=== PATIENT | male | born 1960 | race Two or more races ===

== ENCOUNTER 2021-12-02 21:22 | Inpatient (IN) | payer MEDICAID ==
[~2021-12-02] VITALS: Ht 165.1 cm; Wt 73.2 kg
[2021-12-02 22:23] LABS: BASOPHILS % 0.3 % (0.0-2.0); EOSINOPHILS % 1.9 % (0.0-5.0); HEMOGLOBIN. 13.8 g/dL (14.0-18.0); LYMPHOCYTES % 40.1 % (20.0-50.0); MEAN CORPUSCULAR HEMOGLOBIN 29.4 pg (28.0-32.0); MEAN CORPUSCULAR VOLUME 85.3 fL (80.0-94.0); MEAN PLATELET VOLUME 9.3 fl (7.4-10.4); MONOCYTES % 7.6 % (2.0-8.0); NEUTROPHILS % 50.1 % (40.0-76.0); PLATELET 214 x1000/uL (130-400); RED BLOOD CELL COUNT 4.69 mill/uL (4.7-6.1); RED CELL DISTRIBUTION WIDTH 13.4 % (11.6-14.6)
[2021-12-02 22:29] LABS: PROTHROMBIN TIME 10.3 sec (9.6-11.0)
[2021-12-02 22:42] LABS: CHLORIDE 103 mEq/L (98-107); ETHANOL BLOOD < 10 mg/dL
[2021-12-02] MEDS ORDERED: IOHEXOL-350 100 ML BOTTLE ONE (22:49)
[2021-12-02 22:57] LABS: CLARITY URINE CLEAR (CLEAR); COLOR URINE YELLOW (YELLOW); KETONES URINE NEGATIVE (NEGATIVE); LEUKOCYTE ESTERASE URINE NEGATIVE (NEGATIVE); NITRITE URINE NEGATIVE (NEGATIVE); OCCULT BLOOD URINE TRACE (NEGATIVE); PH URINE 6.5 (4.5-8.0); PROTEIN URINE 2+ (NEGATIVE); SPECIFIC GRAVITY URINE 1.021 (1.005-1.030); UROBILINOGEN URINE 0.2 E.U./dL (0.2-1.0)
[2021-12-02 23:08] LABS: *AMPHETAMINES SCREEN URINE NEGATIVE (NEGATIVE); *BARBITURATES SCREEN URINE NEGATIVE (NEGATIVE); *BENZODIAZEPINES SCREEN URINE NEGATIVE (NEGATIVE); *COCAINE SCREEN URINE NEGATIVE (NEGATIVE); CANNABINOID URINE SCREEN NEGATIVE (NEGATIVE); METHADONE URINE SCREEN NEGATIVE (NEGATIVE); OPIATES URINE SCREEN NEGATIVE (NEGATIVE); PHENCYCLIDINE URINE SCREEN NEGATIVE (NEGATIVE)
[2021-12-03] MEDS ORDERED: ASPIRIN 81MG TABLET PO NR (04:30)
[2021-12-03] MEDS ORDERED: DOCUSATE SODIUM 100MG CAPSULE PO PRN (05:15)
[2021-12-03] MEDS ORDERED: GUAIFENESIN 200MG/10ML SUGAR FREE UDC PO PRN (05:15)
[2021-12-03] MEDS ORDERED: DEXTROSE 50% WATER 50ML SYRINGE IV PRN (05:15)
[2021-12-03] MEDS ORDERED: HYDROCODONE/ACETAMINOPHEN 5/325MG TABLET PO PRN (05:15)
[2021-12-03] MEDS ORDERED: MAGNESIUM/ALUMINUM HYDROXIDE/SIMETHICONE 30ML UDC PO PRN (05:15)
[2021-12-03] MEDS ORDERED: NA PHOS,M-B/NA PHOS,DI-BA ENEMA 118ML PR PRN (05:15)
[2021-12-03] MEDS ORDERED: ONDANSETRON HCL 4MG/2ML INJ IV PRN (05:15)
[2021-12-03] MEDS ORDERED: NALOXONE HCL 0.4MG/ML VIAL IV PRN (05:45)
[2021-12-03] MEDS: BLOOD SUGAR DIAGNOSTIC STRIP TEST SCH ×4 (06:40→21:40)
[2021-12-03] MEDS: HYDRALAZINE 20MG/ML VIAL IV PRN ×2 (06:43→09:49)
[2021-12-03] MEDS: PANTOPRAZOLE 40MG DR TABLET PO SCH (07:50)
[2021-12-03] MEDS: INSULIN LISPRO 100 UNITS/ML SUBCUT SCH ×4 (07:51→21:40)
[2021-12-03 08:25] LABS: BASOPHILS % 0.5 % (0.0-2.0); EOSINOPHILS % 1.3 % (0.0-5.0); HEMATOCRIT. 43.2 % (42.0-52.0); LYMPHOCYTES % 24.6 % (20.0-50.0); MEAN CORPUSCULAR HEMOGLOBIN 29.3 pg (28.0-32.0); MEAN CORPUSCULAR VOLUME 84.5 fL (80.0-94.0); MEAN PLATELET VOLUME 8.9 fl (7.4-10.4); MONOCYTES % 6.4 % (2.0-8.0); NEUTROPHILS % 67.2 % (40.0-76.0); PLATELET 250 x1000/uL (130-400); RED BLOOD CELL COUNT 5.12 mill/uL (4.7-6.1); RED CELL DISTRIBUTION WIDTH 13.4 % (11.6-14.6)
[2021-12-03 09:46] VITALS: BP 179/75
[2021-12-03 10:00] VITALS: BP 179/75
[2021-12-03 11:18] LABS: HDL CHOLESTEROL 40 mg/dL (40-59); LDL CHOLESTEROL 148 mg/dL (5-100)
[2021-12-03 12:00] VITALS: BP 169/82
[2021-12-03] MEDS ORDERED: IOHEXOL-350 100 ML BOTTLE ONE (12:06)
[2021-12-03 12:24] LABS: CHLORIDE 104 mEq/L (98-107); T4 FREE 1.35 ng/dL (0.76-1.46)
[2021-12-03] MEDS ORDERED: GLUXL10 PO (13:13)
[2021-12-03] MEDS ORDERED: IBUP-2029 MT (13:13)
[2021-12-03] MEDS ORDERED: METF500S9 PO (13:13)
[2021-12-03] MEDS: LORAZEPAM 2MG/ML CPJ IV PRN (15:09)
[2021-12-03 15:11] LABS: CREATINE KINASE 114 IU/L (39-308)
[2021-12-03 16:00] VITALS: BP 163/81
[2021-12-03] MEDS ORDERED: LORAZEPAM 2MG/ML CPJ IV NR (17:00)
[2021-12-03 20:00] VITALS: BP 159/78
[2021-12-03 20:16] LABS: PROTHROMBIN TIME 10.8 sec (9.6-11.0)
[2021-12-03 20:21] LABS: CREATINE KINASE 167 IU/L (39-308)
[2021-12-03 20:34] LABS: PARTIAL THROMBOPLASTIN TIME 24.5 sec (23.4-31.0)
[2021-12-03] MEDS: ATORVASTATIN CALCIUM 40MG TABLET PO SCH (21:00)
[2021-12-04] VITALS: BP 164/89
[2021-12-04 04:00] VITALS: BP 136/77
[2021-12-04] MEDS: BLOOD SUGAR DIAGNOSTIC STRIP TEST SCH ×4 (05:57→20:24)
[2021-12-04] MEDS: INSULIN LISPRO 100 UNITS/ML SUBCUT SCH ×5 (05:57→20:23)
[2021-12-04 08:00] VITALS: BP 125/89
[2021-12-04] MEDS: ASPIRIN 81MG TABLET PO SCH (09:18)
[2021-12-04] MEDS: PANTOPRAZOLE 40MG DR TABLET PO SCH (09:18)
[2021-12-04 12:00] VITALS: BP 141/82
[2021-12-04 12:49] LABS: BASOPHILS % 0.2 % (0.0-2.0); HEMATOCRIT. 42.8 % (42.0-52.0); HEMOGLOBIN. 14.6 g/dL (14.0-18.0); LYMPHOCYTES % 10.1 % (20.0-50.0); MEAN CORPUSCULAR VOLUME 85.3 fL (80.0-94.0); MEAN PLATELET VOLUME 9.8 fl (7.4-10.4); MONOCYTES % 7.9 % (2.0-8.0); NEUTROPHILS % 81.8 % (40.0-76.0); PLATELET 244 x1000/uL (130-400); RED BLOOD CELL COUNT 5.02 mill/uL (4.7-6.1); RED CELL DISTRIBUTION WIDTH 13.2 % (11.6-14.6)
[2021-12-04 13:05] LABS: CHLORIDE 102 mEq/L (98-107)
[2021-12-04] MEDS: LORAZEPAM 2MG/ML CPJ IV PRN (13:52)
[2021-12-04 16:00] VITALS: BP 162/85
[2021-12-04] MEDS: DEXT 5%/0.9% NACL 1,000 ML IV SCH (17:52)
[2021-12-04] MEDS: HYDRALAZINE 20MG/ML VIAL IV PRN (18:56)
[2021-12-04] MEDS: DIPHENHYDRAMINE 50MG/ML VIAL IV PRN (19:31)
[2021-12-04] MEDS: ATORVASTATIN CALCIUM 40MG TABLET PO SCH ×3 (19:58→20:57)
[2021-12-04 20:00] VITALS: BP 118/72
[2021-12-04] MEDS: HALOPERIDOL LACTATE 5MG/ML VIAL IM PRN (20:16)
[2021-12-04] MEDS: CLOPIDOGREL 75MG TABLET PO SCH (21:46)
[2021-12-05] VITALS: BP 157/87
[2021-12-05] MEDS: LORAZEPAM 2MG/ML CPJ IV PRN (02:29)
[2021-12-05] MEDS: HALOPERIDOL LACTATE 5MG/ML VIAL IM PRN ×2 (02:29→12:45)
[2021-12-05 04:00] VITALS: BP 138/84
[2021-12-05] MEDS: DEXT 5%/0.9% NACL 1,000 ML IV SCH ×2 (05:45→17:10)
[2021-12-05] MEDS: DIPHENHYDRAMINE 50MG/ML VIAL IV PRN (05:45)
[2021-12-05] MEDS: INSULIN LISPRO 100 UNITS/ML SUBCUT SCH ×4 (06:21→20:41)
[2021-12-05] MEDS: BLOOD SUGAR DIAGNOSTIC STRIP TEST SCH ×4 (06:21→20:27)
[2021-12-05 08:00] VITALS: BP 152/85
[2021-12-05] MEDS: CLOPIDOGREL 75MG TABLET PO SCH (10:36)
[2021-12-05] MEDS: ASPIRIN 81MG TABLET PO SCH (10:36)
[2021-12-05] MEDS: FAMOTIDINE 20MG TABLET PO SCH ×3 (10:36→21:00)
[2021-12-05 12:00] VITALS: BP 161/77
[2021-12-05 16:00] VITALS: BP 142/83
[2021-12-05 20:00] VITALS: BP 151/89
[2021-12-05] MEDS: ATORVASTATIN CALCIUM 40MG TABLET PO SCH ×2 (20:38→21:00)
[2021-12-06] VITALS: BP 166/97
[2021-12-06] MEDS: HYDRALAZINE 20MG/ML VIAL IV PRN (00:49)
[2021-12-06] MEDS: DIPHENHYDRAMINE 50MG/ML VIAL IV PRN (00:49)
[2021-12-06 03:51] VITALS: BP 153/89
[2021-12-06] MEDS: DEXT 5%/0.9% NACL 1,000 ML IV SCH ×2 (06:04→20:28)
[2021-12-06] MEDS: BLOOD SUGAR DIAGNOSTIC STRIP TEST SCH ×4 (06:12→20:06)
[2021-12-06] MEDS: INSULIN LISPRO 100 UNITS/ML SUBCUT SCH ×4 (06:13→20:29)
[2021-12-06 08:07] VITALS: BP 152/84
[2021-12-06] MEDS: CLOPIDOGREL 75MG TABLET PO SCH (09:00)
[2021-12-06] MEDS: FAMOTIDINE 20MG TABLET PO SCH ×2 (09:00→21:00)
[2021-12-06] MEDS: ASPIRIN 81MG TABLET PO SCH (09:00)
[2021-12-06 12:06] VITALS: BP 138/84
[2021-12-06 13:02] LABS: HEMATOCRIT 47.7 % (42.0-52.0); MEAN CORPUSCULAR HEMOGLOBIN 29.2 pg (28.0-32.0); MEAN CORPUSCULAR VOLUME 87.2 fL (80.0-94.0); PLATELET 266 x1000/uL (130-400); RED BLOOD CELL COUNT 5.47 mill/uL (4.7-6.1); RED CELL DISTRIBUTION WIDTH 13.8 % (11.6-14.6)
[2021-12-06 16:13] VITALS: BP 155/81
[2021-12-06 20:00] VITALS: BP 142/78
[2021-12-06] MEDS: ATORVASTATIN CALCIUM 40MG TABLET PO SCH (21:00)
[2021-12-07] VITALS: BP 152/86
[2021-12-07 04:00] VITALS: BP 147/84
[2021-12-07 05:35] LABS: HEMATOCRIT 46.2 % (42.0-52.0); HEMOGLOBIN 15.3 g/dL (14.0-18.0); MEAN CORPUSCULAR HEMOGLOBIN 29.2 pg (28.0-32.0); MEAN CORPUSCULAR VOLUME 88.1 fL (80.0-94.0); PLATELET 277 x1000/uL (130-400); RED BLOOD CELL COUNT 5.25 mill/uL (4.7-6.1)
[2021-12-07] MEDS: BLOOD SUGAR DIAGNOSTIC STRIP TEST SCH ×4 (06:18→21:00)
[2021-12-07] MEDS: INSULIN LISPRO 100 UNITS/ML SUBCUT SCH ×4 (06:58→22:54)
[2021-12-07 07:54] VITALS: BP 128/80
[2021-12-07] MEDS ORDERED: INSULIN LISPRO 100 UNITS/ML SUBCUT NR (08:30)
[2021-12-07] MEDS: ASPIRIN 81MG TABLET PO SCH (09:11)
[2021-12-07] MEDS: CLOPIDOGREL 75MG TABLET PO SCH (09:11)
[2021-12-07] MEDS: FAMOTIDINE 20MG TABLET PO SCH ×2 (09:11→23:09)
[2021-12-07] MEDS: SODIUM CHLORIDE 0.9% 1,000 ML IV SCH ×2 (09:12→22:47)
[2021-12-07 12:00] VITALS: BP 134/76
[2021-12-07 12:57] LABS: CLARITY URINE CLEAR (CLEAR); COLOR URINE YELLOW (YELLOW); KETONES URINE 3+ (NEGATIVE); LEUKOCYTE ESTERASE URINE NEGATIVE (NEGATIVE); NITRITE URINE NEGATIVE (NEGATIVE); OCCULT BLOOD URINE 2+ (NEGATIVE); PH URINE 5.5 (4.5-8.0); PROTEIN URINE 3+ (NEGATIVE); SPECIFIC GRAVITY URINE 1.033 (1.005-1.030)
[2021-12-07 16:00] VITALS: BP 158/83
[2021-12-07] MEDS: METOCLOPRAMIDE HCL 10MG/2ML VIAL IV SCH (18:30)
[2021-12-07 20:00] VITALS: BP 129/84
[2021-12-07] MEDS: INSULIN GLARGINE 100 UNITS/ML SUBCUT SCH (23:08)
[2021-12-07] MEDS: ATORVASTATIN CALCIUM 40MG TABLET PO SCH (23:09)
[2021-12-08] VITALS: BP 149/87
[2021-12-08] MEDS: METOCLOPRAMIDE HCL 10MG/2ML VIAL IV SCH ×5 (01:01→23:31)
[2021-12-08 04:00] VITALS: BP 146/79
[2021-12-08] MEDS: BLOOD SUGAR DIAGNOSTIC STRIP TEST SCH ×4 (05:57→21:14)
[2021-12-08] MEDS: INSULIN LISPRO 100 UNITS/ML SUBCUT SCH ×6 (06:42→21:00)
[2021-12-08 07:05] LABS: BASOPHILS % 0.2 % (0.0-2.0); HEMATOCRIT. 45.1 % (42.0-52.0); LYMPHOCYTES % 10.7 % (20.0-50.0); MEAN CORPUSCULAR HEMOGLOBIN 29.2 pg (28.0-32.0); MEAN CORPUSCULAR VOLUME 87.7 fL (80.0-94.0); MONOCYTES % 6.5 % (2.0-8.0); NEUTROPHILS % 82.6 % (40.0-76.0); PLATELET 297 x1000/uL (130-400); RED BLOOD CELL COUNT 5.15 mill/uL (4.7-6.1); RED CELL DISTRIBUTION WIDTH 13.8 % (11.6-14.6)
[2021-12-08 08:00] VITALS: BP 131/74
[2021-12-08] MEDS: FAMOTIDINE 20MG TABLET PO SCH ×2 (08:22→21:34)
[2021-12-08 11:57] VITALS: BP 158/88
[2021-12-08] MEDS: SODIUM CHLORIDE 0.9% 1,000 ML IV SCH ×2 (12:02→23:36)
[2021-12-08] MEDS: METOPROLOL TARTRATE 25MG TABLET NG SCH ×2 (14:34→21:34)
[2021-12-08 15:38] VITALS: BP 158/79
[2021-12-08] MEDS: ACETAMINOPHEN 325MG TABLET PO PRN ×2 (15:52→21:58)
[2021-12-08] MEDS: DILTIAZEM HCL 30MG TABLET NG SCH ×2 (17:12→23:36)
[2021-12-08 20:00] VITALS: BP 168/79
[2021-12-08] MEDS: ATORVASTATIN CALCIUM 40MG TABLET PO SCH (21:34)
[2021-12-08] MEDS: INSULIN GLARGINE 100 UNITS/ML SUBCUT SCH (21:35)
[2021-12-08] MEDS: HYDRALAZINE 20MG/ML VIAL IV PRN (23:31)
[2021-12-09] VITALS (21 sets, daily range): BP systolic 90–186; BP diastolic 58–92
[2021-12-09 01:04] LABS: BASOPHILS % 0.4 % (0.0-2.0); HEMATOCRIT. 45.5 % (42.0-52.0); HEMOGLOBIN. 15.4 g/dL (14.0-18.0); LYMPHOCYTES % 10.7 % (20.0-50.0); MEAN CORPUSCULAR HEMOGLOBIN 29.4 pg (28.0-32.0); MEAN PLATELET VOLUME 9.3 fl (7.4-10.4); MONOCYTES % 7.5 % (2.0-8.0); NEUTROPHILS % 81.4 % (40.0-76.0); PLATELET 250 x1000/uL (130-400); RED BLOOD CELL COUNT 5.24 mill/uL (4.7-6.1); RED CELL DISTRIBUTION WIDTH 13.6 % (11.6-14.6)
[2021-12-09 01:17] LABS: CHLORIDE 127 mEq/L (98-107)
[2021-12-09 02:23] LABS: PROTHROMBIN TIME 11.2 sec (9.6-11.0)
[2021-12-09] MEDS: METOPROLOL TARTRATE 25MG TABLET NG SCH ×2 (04:35→20:30)
[2021-12-09] MEDS: DILTIAZEM HCL 30MG TABLET NG SCH ×3 (06:21→18:43)
[2021-12-09] MEDS: HYDRALAZINE 20MG/ML VIAL IV PRN (06:21)
[2021-12-09] MEDS: METOCLOPRAMIDE HCL 10MG/2ML VIAL IV SCH ×3 (06:21→18:43)
[2021-12-09] MEDS: BLOOD SUGAR DIAGNOSTIC STRIP TEST SCH ×4 (06:22→21:22)
[2021-12-09] MEDS: INSULIN LISPRO 100 UNITS/ML SUBCUT SCH ×7 (06:35→21:21)
[2021-12-09 08:35] LABS: BG BASE EXCESS -4.1 mmol/L (-2.0-2.0); BG CARBOXYHEMOGLOBIN 0.9 % (0.5-1.5); BG DEOXYHEMOGLOBIN 4.3 % (0.0-5.0); BG FRACTION INSPIRED OXYGEN 44; BG HCO3 ACT 18.3 mmol/L (22.0-26.0); BG METHEMOGLOBIN 0.3 % (0.0-1.5); BG OXYGEN SATURATION 95.6 % (92.0-98.5); BG OXYHEMOGLOBIN 94.5 % (94.0-97.0); BG PCO2 27.7 mmHg (35.0-45.0); BG PH 7.438 (7.350-7.450); BG PO2 72.9 mmHg (75.0-100.0); BG SAMPLE SITE RIGHT RADIAL; BG TOTAL HEMOGLOBIN 16.3 g/dL (12.0-18.0)
[2021-12-09] MEDS ORDERED: PROPOFOL 10MG/ML 100ML 100 ML IV PRN (09:30)
[2021-12-09] MEDS ORDERED: FENTANYL 2500MCG/250ML PMX 250 ML IV ONE (09:30)
[2021-12-09] MEDS ORDERED: NOREPINEPHRINE 8 MG in DEXT 5% WATER 242 ML IV PRN (10:00)
[2021-12-09 10:39] LABS: BG BASE EXCESS -5.3 mmol/L (-2.0-2.0); BG CARBOXYHEMOGLOBIN 0.9 % (0.5-1.5); BG DEOXYHEMOGLOBIN 0.3 % (0.0-5.0); BG FRACTION INSPIRED OXYGEN 100; BG HCO3 ACT 18.2 mmol/L (22.0-26.0); BG METHEMOGLOBIN 0.4 % (0.0-1.5); BG OXYGEN SATURATION 99.7 % (92.0-98.5); BG OXYHEMOGLOBIN 98.4 % (94.0-97.0); BG PCO2 30.5 mmHg (35.0-45.0); BG PH 7.393 (7.350-7.450); BG PO2 311.3 mmHg (75.0-100.0); BG SAMPLE SITE RIGHT RADIAL; BG TOTAL HEMOGLOBIN 16.5 g/dL (12.0-18.0); BG VENT MODE VENT - AC
[2021-12-09] MEDS: SODIUM CHLORIDE 0.9% 1,000 ML IV SCH (10:47)
[2021-12-09] MEDS ORDERED: CEFAZOLIN 1000MG PREMIX 50 ML IV NR (11:00)
[2021-12-09] MEDS: PROPOFOL 10 MG/ML 100 ML IV PRN ×2 (11:00→21:22)
[2021-12-09] MEDS: IPRATROPIUM/ALBUTEROL 0.5-3(2.5)MG/3ML NEB HHN PRN ×2 (11:12→15:25)
[2021-12-09] MEDS: FAMOTIDINE 20MG TABLET PO SCH (12:20)
[2021-12-09] MEDS: DEXT 5%/0.45% NACL 1000ML 1,000 ML IV SCH (12:21)
[2021-12-09 13:28] LABS: BASOPHILS % 0.3 % (0.0-2.0); HEMATOCRIT. 49.3 % (42.0-52.0); HEMOGLOBIN. 16.1 g/dL (14.0-18.0); MEAN CORPUSCULAR VOLUME 88.8 fL (80.0-94.0); MEAN PLATELET VOLUME 9.5 fl (7.4-10.4); MONOCYTES % 3.9 % (2.0-8.0); NEUTROPHILS % 87.8 % (40.0-76.0); PLATELET 214 x1000/uL (130-400); RED BLOOD CELL COUNT 5.55 mill/uL (4.7-6.1); RED CELL DISTRIBUTION WIDTH 14.2 % (11.6-14.6)
[2021-12-09 13:41] LABS: CHLORIDE 127 mEq/L (98-107)
[2021-12-09] MEDS: ATORVASTATIN CALCIUM 40MG TABLET PO SCH (21:19)
[2021-12-09] MEDS: INSULIN GLARGINE 100 UNITS/ML SUBCUT SCH (21:21)
[2021-12-10] VITALS (32 sets, daily range): BP systolic 88–191; BP diastolic 50–95
[2021-12-10] MEDS: METOCLOPRAMIDE HCL 10MG/2ML VIAL IV SCH ×4 (00:58→17:32)
[2021-12-10] MEDS: DEXT 5%/0.45% NACL 1000ML 1,000 ML IV SCH (00:59)
[2021-12-10] MEDS: DILTIAZEM HCL 30MG TABLET NG SCH ×4 (00:59→17:32)
[2021-12-10] MEDS: SODIUM CHLORIDE 0.9% 1,000 ML IV SCH ×2 (02:47→17:05)
[2021-12-10] MEDS: CLONIDINE 0.1MG TABLET PO PRN (04:26)
[2021-12-10 06:18] LABS: BASOPHILS % 0.1 % (0.0-2.0); HEMATOCRIT. 43.7 % (42.0-52.0); HEMOGLOBIN. 14.5 g/dL (14.0-18.0); LYMPHOCYTES % 11.8 % (20.0-50.0); MEAN CORPUSCULAR HEMOGLOBIN 29.4 pg (28.0-32.0); MEAN CORPUSCULAR VOLUME 88.6 fL (80.0-94.0); MEAN PLATELET VOLUME 9.5 fl (7.4-10.4); MONOCYTES % 7.1 % (2.0-8.0); PLATELET 121 x1000/uL (130-400); RED BLOOD CELL COUNT 4.94 mill/uL (4.7-6.1); RED CELL DISTRIBUTION WIDTH 14.2 % (11.6-14.6)
[2021-12-10] MEDS: INSULIN LISPRO 100 UNITS/ML SUBCUT SCH ×7 (07:50→17:40)
[2021-12-10 08:19] LABS: BG BASE EXCESS -7.4 mmol/L (-2.0-2.0); BG CARBOXYHEMOGLOBIN 0.1 % (0.5-1.5); BG DEOXYHEMOGLOBIN 1.4 % (0.0-5.0); BG FRACTION INSPIRED OXYGEN 35; BG HCO3 ACT 16.5 mmol/L (22.0-26.0); BG METHEMOGLOBIN 0.3 % (0.0-1.5); BG OXYGEN SATURATION 98.6 % (92.0-98.5); BG OXYHEMOGLOBIN 98.2 % (94.0-97.0); BG PCO2 29.3 mmHg (35.0-45.0); BG PH 7.368 (7.350-7.450); BG PO2 139.5 mmHg (75.0-100.0); BG SAMPLE SITE RIGHT RADIAL; BG TOTAL HEMOGLOBIN 13.8 g/dL (12.0-18.0); BG VENT MODE VENT - AC
[2021-12-10] MEDS ORDERED: INSULIN REGULAR (HUMULIN R) 300UNITS/3ML VIAL SUBCUT NR (08:45)
[2021-12-10] MEDS: BLOOD SUGAR DIAGNOSTIC STRIP TEST SCH ×3 (08:46→17:13)
[2021-12-10] MEDS: FAMOTIDINE 20MG/2ML VIAL IV SCH ×2 (08:56→22:31)
[2021-12-10] MEDS: METOPROLOL TARTRATE 25MG TABLET NG SCH ×2 (08:57→22:44)
[2021-12-10] MEDS ORDERED: INSULIN GLARGINE 100 UNITS/ML SUBCUT NR (10:30)
[2021-12-10] MEDS: HYDRALAZINE 20MG/ML VIAL IV PRN (11:13)
[2021-12-10] MEDS: ACETAMINOPHEN 325MG TABLET PO PRN (17:38)
[2021-12-10] MEDS: DOCUSATE SODIUM SUGAR FREE 100MG/10ML UDC NG SCH (17:38)
[2021-12-10] MEDS: INSULIN GLARGINE 100 UNITS/ML SUBCUT SCH (23:12)
[2021-12-10] MEDS: ATORVASTATIN CALCIUM 40MG TABLET PO SCH (23:13)
[2021-12-11] VITALS (45 sets, daily range): BP systolic 30–190; BP diastolic 37–120
[2021-12-11] MEDS: METOCLOPRAMIDE HCL 10MG/2ML VIAL IV SCH ×5 (00:41→23:11)
[2021-12-11] MEDS: DILTIAZEM HCL 30MG TABLET NG SCH ×5 (00:42→23:47)
[2021-12-11] MEDS: BLOOD SUGAR DIAGNOSTIC STRIP TEST SCH ×5 (00:43→23:18)
[2021-12-11] MEDS: DIPHENHYDRAMINE 50MG/ML VIAL IV PRN (01:59)
[2021-12-11] MEDS: HYDRALAZINE 20MG/ML VIAL IV PRN ×2 (02:00→14:56)
[2021-12-11 05:54] LABS: BASOPHILS % 0.2 % (0.0-2.0); EOSINOPHILS % 0.1 % (0.0-5.0); HEMATOCRIT. 40.5 % (42.0-52.0); HEMOGLOBIN. 13.6 g/dL (14.0-18.0); LYMPHOCYTES % 7.6 % (20.0-50.0); MEAN CORPUSCULAR VOLUME 86.5 fL (80.0-94.0); MONOCYTES % 5.9 % (2.0-8.0); NEUTROPHILS % 86.2 % (40.0-76.0); PLATELET 116 x1000/uL (130-400); RED BLOOD CELL COUNT 4.68 mill/uL (4.7-6.1); RED CELL DISTRIBUTION WIDTH 13.7 % (11.6-14.6)
[2021-12-11] MEDS: INSULIN LISPRO 100 UNITS/ML SUBCUT SCH ×8 (06:00→23:17)
[2021-12-11] MEDS: SODIUM CHLORIDE 0.9% 1,000 ML IV SCH (06:00)
[2021-12-11 08:23] LABS: BG CARBOXYHEMOGLOBIN 0.7 % (0.5-1.5); BG DEOXYHEMOGLOBIN 1.2 % (0.0-5.0); BG FRACTION INSPIRED OXYGEN 30; BG HCO3 ACT 20.8 mmol/L (22.0-26.0); BG METHEMOGLOBIN 0.5 % (0.0-1.5); BG OXYGEN SATURATION 98.8 % (92.0-98.5); BG OXYHEMOGLOBIN 97.6 % (94.0-97.0); BG PCO2 30.3 mmHg (35.0-45.0); BG PH 7.455 (7.350-7.450); BG PO2 140.9 mmHg (75.0-100.0); BG SAMPLE SITE RIGHT RADIAL; BG TOTAL HEMOGLOBIN 13.9 g/dL (12.0-18.0); BG VENT MODE VENT - AC
[2021-12-11] MEDS: METOPROLOL TARTRATE 25MG TABLET NG SCH ×2 (09:00→20:54)
[2021-12-11] MEDS: FAMOTIDINE 20MG/2ML VIAL IV SCH ×2 (09:23→20:53)
[2021-12-11 09:26] LABS: CHLORIDE 129 mEq/L (98-107)
[2021-12-11] MEDS: DOCUSATE SODIUM SUGAR FREE 100MG/10ML UDC NG SCH ×2 (09:32→17:01)
[2021-12-11] MEDS: INSULIN GLARGINE 100 UNITS/ML SUBCUT SCH ×2 (10:26→23:16)
[2021-12-11] MEDS: DEXTROSE 5% WATER 1,000 ML IV SCH ×2 (10:29→23:10)
[2021-12-11] MEDS ORDERED: KCL 20MEQ/100ML PREMIX 100 ML IV SCH (13:00)
[2021-12-11] MEDS: ATORVASTATIN CALCIUM 40MG TABLET PO SCH (20:54)
[2021-12-12] VITALS (47 sets, daily range): BP systolic 111–180; BP diastolic 63–112
[2021-12-12] MEDS: CLONIDINE 0.1MG TABLET PO PRN ×2 (02:15→23:25)
[2021-12-12 05:10] LABS: BASOPHILS % 0.3 % (0.0-2.0); HEMATOCRIT. 38.3 % (42.0-52.0); HEMOGLOBIN. 12.9 g/dL (14.0-18.0); LYMPHOCYTES % 8.3 % (20.0-50.0); MEAN CORPUSCULAR HEMOGLOBIN 29.2 pg (28.0-32.0); MEAN CORPUSCULAR VOLUME 86.7 fL (80.0-94.0); MEAN PLATELET VOLUME 10.6 fl (7.4-10.4); MONOCYTES % 8.5 % (2.0-8.0); NEUTROPHILS % 82.9 % (40.0-76.0); PLATELET 116 x1000/uL (130-400); RED BLOOD CELL COUNT 4.41 mill/uL (4.7-6.1); RED CELL DISTRIBUTION WIDTH 13.7 % (11.6-14.6)
[2021-12-12 05:14] LABS: CHLORIDE 122 mEq/L (98-107)
[2021-12-12] MEDS: BLOOD SUGAR DIAGNOSTIC STRIP TEST SCH ×4 (05:20→23:18)
[2021-12-12] MEDS: METOCLOPRAMIDE HCL 10MG/2ML VIAL IV SCH ×4 (05:31→23:25)
[2021-12-12] MEDS: DILTIAZEM HCL 30MG TABLET NG SCH ×4 (05:32→23:25)
[2021-12-12] MEDS: INSULIN LISPRO 100 UNITS/ML SUBCUT SCH ×7 (05:51→23:27)
[2021-12-12] MEDS: ACETAMINOPHEN 325MG TABLET PO PRN ×2 (05:59→19:44)
[2021-12-12] MEDS: DOCUSATE SODIUM SUGAR FREE 100MG/10ML UDC NG SCH ×2 (08:37→16:49)
[2021-12-12] MEDS: FAMOTIDINE 20MG/2ML VIAL IV SCH ×2 (08:38→21:12)
[2021-12-12 08:40] LABS: BG BASE EXCESS 1.8 mmol/L (-2.0-2.0); BG CARBOXYHEMOGLOBIN 0.5 % (0.5-1.5); BG DEOXYHEMOGLOBIN 1.3 % (0.0-5.0); BG FRACTION INSPIRED OXYGEN 30; BG HCO3 ACT 24.6 mmol/L (22.0-26.0); BG METHEMOGLOBIN 0.4 % (0.0-1.5); BG OXYGEN SATURATION 98.7 % (92.0-98.5); BG OXYHEMOGLOBIN 97.8 % (94.0-97.0); BG PCO2 33.1 mmHg (35.0-45.0); BG PH 7.489 (7.350-7.450); BG SAMPLE SITE LEFT RADIAL; BG TOTAL HEMOGLOBIN 13.4 g/dL (12.0-18.0); BG VENT MODE VENT - AC
[2021-12-12] MEDS: METOPROLOL TARTRATE 25MG TABLET NG SCH ×2 (08:51→21:11)
[2021-12-12] MEDS: INSULIN GLARGINE 100 UNITS/ML SUBCUT SCH ×2 (10:06→21:16)
[2021-12-12] MEDS: LOSARTAN POTASSIUM 50 MG TABLET PO SCH ×2 (11:18→21:11)
[2021-12-12] MEDS: DEXTROSE 5% WATER 1,000 ML IV SCH (13:09)
[2021-12-12] MEDS: ATORVASTATIN CALCIUM 40MG TABLET PO SCH (21:11)
[2021-12-13] VITALS (43 sets, daily range): BP systolic 95–192; BP diastolic 47–83
[2021-12-13] MEDS: DEXTROSE 5% WATER 1,000 ML IV SCH ×2 (01:07→15:50)
[2021-12-13] MEDS: METOCLOPRAMIDE HCL 10MG/2ML VIAL IV SCH ×3 (05:43→17:17)
[2021-12-13] MEDS: DILTIAZEM HCL 30MG TABLET NG SCH ×3 (05:44→17:17)
[2021-12-13] MEDS: BLOOD SUGAR DIAGNOSTIC STRIP TEST SCH ×3 (06:42→17:01)
[2021-12-13] MEDS: INSULIN LISPRO 100 UNITS/ML SUBCUT SCH ×6 (06:48→17:17)
[2021-12-13 06:51] LABS: BASOPHILS % 0.3 % (0.0-2.0); EOSINOPHILS % 1.8 % (0.0-5.0); HEMATOCRIT. 38.8 % (42.0-52.0); HEMOGLOBIN. 13.1 g/dL (14.0-18.0); LYMPHOCYTES % 8.1 % (20.0-50.0); MEAN CORPUSCULAR HEMOGLOBIN 29.1 pg (28.0-32.0); MEAN CORPUSCULAR VOLUME 86.4 fL (80.0-94.0); MEAN PLATELET VOLUME 11.2 fl (7.4-10.4); MONOCYTES % 9.4 % (2.0-8.0); NEUTROPHILS % 80.4 % (40.0-76.0); PLATELET 101 x1000/uL (130-400); RED BLOOD CELL COUNT 4.49 mill/uL (4.7-6.1); RED CELL DISTRIBUTION WIDTH 13.4 % (11.6-14.6)
[2021-12-13 07:11] LABS: CHLORIDE 111 mEq/L (98-107)
[2021-12-13] MEDS: DOCUSATE SODIUM SUGAR FREE 100MG/10ML UDC NG SCH ×2 (09:00→17:17)
[2021-12-13] MEDS: METOPROLOL TARTRATE 25MG TABLET NG SCH ×2 (09:07→21:32)
[2021-12-13] MEDS: LOSARTAN POTASSIUM 50 MG TABLET PO SCH ×2 (09:07→21:32)
[2021-12-13] MEDS: FAMOTIDINE 20MG/2ML VIAL IV SCH ×2 (09:08→21:31)
[2021-12-13] MEDS: CEFEPIME 2,000 MG in DEXT 5% WATER 100 ML IV SCH ×2 (12:57→23:12)
[2021-12-13] MEDS: INSULIN GLARGINE 100 UNITS/ML SUBCUT SCH ×2 (12:58→21:33)
[2021-12-13] MEDS: SULFACETAMIDE SODIUM 10% OPHTH DROPS 15ML BOTHEYE SCH ×3 (17:00→21:33)
[2021-12-13] MEDS: ATORVASTATIN CALCIUM 40MG TABLET PO SCH (21:31)
[2021-12-14] VITALS (33 sets, daily range): BP systolic 103–155; BP diastolic 58–93
[2021-12-14] MEDS: BLOOD SUGAR DIAGNOSTIC STRIP TEST SCH ×4 (00:05→18:23)
[2021-12-14] MEDS: INSULIN LISPRO 100 UNITS/ML SUBCUT SCH ×7 (00:12→18:23)
[2021-12-14] MEDS: METOCLOPRAMIDE HCL 10MG/2ML VIAL IV SCH ×4 (00:13→18:22)
[2021-12-14] MEDS: DILTIAZEM HCL 30MG TABLET NG SCH ×4 (00:14→18:22)
[2021-12-14] MEDS: DEXTROSE 5% WATER 1,000 ML IV SCH ×2 (05:10→18:23)
[2021-12-14 05:14] LABS: BASOPHILS % 0.4 % (0.0-2.0); EOSINOPHILS % 1.9 % (0.0-5.0); HEMATOCRIT. 37.5 % (42.0-52.0); HEMOGLOBIN. 12.9 g/dL (14.0-18.0); LYMPHOCYTES % 7.6 % (20.0-50.0); MEAN CORPUSCULAR HEMOGLOBIN 29.2 pg (28.0-32.0); MEAN CORPUSCULAR VOLUME 84.9 fL (80.0-94.0); MEAN PLATELET VOLUME 10.8 fl (7.4-10.4); MONOCYTES % 9.5 % (2.0-8.0); NEUTROPHILS % 80.6 % (40.0-76.0); PLATELET 125 x1000/uL (130-400); RED BLOOD CELL COUNT 4.41 mill/uL (4.7-6.1)
[2021-12-14 05:18] LABS: PROTHROMBIN TIME 10.7 sec (9.6-11.0)
[2021-12-14 05:31] LABS: CHLORIDE 111 mEq/L (98-107)
[2021-12-14 08:34] LABS: BG BASE EXCESS 2.4 mmol/L (-2.0-2.0); BG CARBOXYHEMOGLOBIN 0.6 % (0.5-1.5); BG DEOXYHEMOGLOBIN 1.7 % (0.0-5.0); BG FRACTION INSPIRED OXYGEN 30; BG HCO3 ACT 25.9 mmol/L (22.0-26.0); BG METHEMOGLOBIN 0.3 % (0.0-1.5); BG OXYGEN SATURATION 98.3 % (92.0-98.5); BG OXYHEMOGLOBIN 97.4 % (94.0-97.0); BG PCO2 36.3 mmHg (35.0-45.0); BG PH 7.471 (7.350-7.450); BG PO2 116.4 mmHg (75.0-100.0); BG SAMPLE SITE LEFT RADIAL; BG TOTAL HEMOGLOBIN 13.6 g/dL (12.0-18.0); BG VENT MODE VENT - AC
[2021-12-14] MEDS: CEFEPIME 2,000 MG in DEXT 5% WATER 100 ML IV SCH ×2 (09:19→21:06)
[2021-12-14] MEDS: FAMOTIDINE 20MG/2ML VIAL IV SCH ×2 (09:19→21:07)
[2021-12-14] MEDS: METOPROLOL TARTRATE 25MG TABLET NG SCH ×2 (09:20→21:11)
[2021-12-14] MEDS: LOSARTAN POTASSIUM 50 MG TABLET PO SCH ×2 (09:20→21:07)
[2021-12-14] MEDS: INSULIN GLARGINE 100 UNITS/ML SUBCUT SCH ×2 (09:21→21:11)
[2021-12-14] MEDS: DOCUSATE SODIUM SUGAR FREE 100MG/10ML UDC NG SCH ×2 (09:21→17:00)
[2021-12-14] MEDS: SULFACETAMIDE SODIUM 10% OPHTH DROPS 15ML BOTHEYE SCH ×3 (09:22→21:13)
[2021-12-14] MEDS: ATORVASTATIN CALCIUM 40MG TABLET PO SCH (21:07)
[2021-12-15] VITALS (46 sets, daily range): BP systolic 96–154; BP diastolic 62–90
[2021-12-15] MEDS: BLOOD SUGAR DIAGNOSTIC STRIP TEST SCH ×4 (00:12→17:58)
[2021-12-15] MEDS: METOCLOPRAMIDE HCL 10MG/2ML VIAL IV SCH ×4 (00:39→18:05)
[2021-12-15] MEDS: DILTIAZEM HCL 30MG TABLET NG SCH ×4 (00:39→18:05)
[2021-12-15] MEDS: INSULIN LISPRO 100 UNITS/ML SUBCUT SCH ×7 (00:40→18:06)
[2021-12-15] MEDS: DIPHENHYDRAMINE 50MG/ML VIAL IV PRN (01:43)
[2021-12-15] MEDS: HALOPERIDOL LACTATE 5MG/ML VIAL IM PRN (04:07)
[2021-12-15 05:25] LABS: BASOPHILS % 0.1 % (0.0-2.0); EOSINOPHILS % 1.6 % (0.0-5.0); HEMATOCRIT. 39.7 % (42.0-52.0); HEMOGLOBIN. 13.5 g/dL (14.0-18.0); LYMPHOCYTES % 8.8 % (20.0-50.0); MEAN CORPUSCULAR HEMOGLOBIN 29.3 pg (28.0-32.0); MEAN CORPUSCULAR VOLUME 86.1 fL (80.0-94.0); MONOCYTES % 8.7 % (2.0-8.0); NEUTROPHILS % 80.8 % (40.0-76.0); PLATELET 152 x1000/uL (130-400); RED BLOOD CELL COUNT 4.61 mill/uL (4.7-6.1); RED CELL DISTRIBUTION WIDTH 13.1 % (11.6-14.6)
[2021-12-15 06:38] LABS: CHLORIDE 112 mEq/L (98-107)
[2021-12-15] MEDS: DEXTROSE 5% WATER 1,000 ML IV SCH (07:50)
[2021-12-15 08:30] LABS: BG BASE EXCESS 2.4 mmol/L (-2.0-2.0); BG CARBOXYHEMOGLOBIN 0.5 % (0.5-1.5); BG DEOXYHEMOGLOBIN 3.7 % (0.0-5.0); BG FRACTION INSPIRED OXYGEN 30; BG HCO3 ACT 25.3 mmol/L (22.0-26.0); BG METHEMOGLOBIN 0.2 % (0.0-1.5); BG OXYGEN SATURATION 96.3 % (92.0-98.5); BG OXYHEMOGLOBIN 95.6 % (94.0-97.0); BG PCO2 34.1 mmHg (35.0-45.0); BG PH 7.488 (7.350-7.450); BG PO2 80.3 mmHg (75.0-100.0); BG SAMPLE SITE RIGHT RADIAL; BG TOTAL HEMOGLOBIN 14.4 g/dL (12.0-18.0); BG VENT MODE VENT - AC
[2021-12-15] MEDS: FAMOTIDINE 20MG/2ML VIAL IV SCH ×2 (09:14→22:15)
[2021-12-15] MEDS: LOSARTAN POTASSIUM 50 MG TABLET PO SCH ×2 (09:14→22:16)
[2021-12-15] MEDS: DOCUSATE SODIUM SUGAR FREE 100MG/10ML UDC NG SCH ×2 (09:15→18:05)
[2021-12-15] MEDS: CEFEPIME 2,000 MG in DEXT 5% WATER 100 ML IV SCH ×2 (09:15→22:15)
[2021-12-15] MEDS: METOPROLOL TARTRATE 25MG TABLET NG SCH ×2 (09:15→22:16)
[2021-12-15] MEDS: SULFACETAMIDE SODIUM 10% OPHTH DROPS 15ML BOTHEYE SCH ×4 (09:23→22:30)
[2021-12-15] MEDS: INSULIN GLARGINE 100 UNITS/ML SUBCUT SCH ×2 (09:35→22:00)
[2021-12-15] MEDS ORDERED: SENNOSIDES/DOCUSATE SOD 8.6/50MG TABLET PO PRN (12:00)
[2021-12-15] MEDS: ATORVASTATIN CALCIUM 40MG TABLET PO SCH (22:15)
[2021-12-16] VITALS (29 sets, daily range): BP systolic 96–149; BP diastolic 58–86
[2021-12-16] MEDS: METOCLOPRAMIDE HCL 10MG/2ML VIAL IV SCH ×4 (01:30→17:59)
[2021-12-16] MEDS: DILTIAZEM HCL 30MG TABLET NG SCH ×4 (01:31→18:00)
[2021-12-16 05:22] LABS: BASOPHILS % 0.3 % (0.0-2.0); EOSINOPHILS % 0.6 % (0.0-5.0); HEMATOCRIT. 38.7 % (42.0-52.0); HEMOGLOBIN. 13.1 g/dL (14.0-18.0); LYMPHOCYTES % 7.7 % (20.0-50.0); MEAN CORPUSCULAR HEMOGLOBIN 29.3 pg (28.0-32.0); MEAN CORPUSCULAR VOLUME 86.7 fL (80.0-94.0); MEAN PLATELET VOLUME 10.3 fl (7.4-10.4); MONOCYTES % 7.8 % (2.0-8.0); NEUTROPHILS % 83.6 % (40.0-76.0); PLATELET 186 x1000/uL (130-400); RED BLOOD CELL COUNT 4.47 mill/uL (4.7-6.1)
[2021-12-16 05:44] LABS: CHLORIDE 112 mEq/L (98-107)
[2021-12-16] MEDS: BLOOD SUGAR DIAGNOSTIC STRIP TEST SCH ×4 (06:47→18:01)
[2021-12-16] MEDS: INSULIN LISPRO 100 UNITS/ML SUBCUT SCH ×7 (06:58→19:01)
[2021-12-16] MEDS: IPRATROPIUM/ALBUTEROL 0.5-3(2.5)MG/3ML NEB HHN PRN ×2 (08:56→12:23)
[2021-12-16] MEDS: DOCUSATE SODIUM SUGAR FREE 100MG/10ML UDC NG SCH ×2 (09:32→17:59)
[2021-12-16] MEDS: METOPROLOL TARTRATE 25MG TABLET NG SCH ×2 (09:32→21:00)
[2021-12-16] MEDS: FAMOTIDINE 20MG/2ML VIAL IV SCH ×2 (09:32→21:51)
[2021-12-16] MEDS: LOSARTAN POTASSIUM 50 MG TABLET PO SCH ×2 (09:32→21:00)
[2021-12-16] MEDS: SULFACETAMIDE SODIUM 10% OPHTH DROPS 15ML BOTHEYE SCH ×4 (09:33→21:38)
[2021-12-16] MEDS: CEFEPIME 2,000 MG in DEXT 5% WATER 100 ML IV SCH ×2 (09:39→21:38)
[2021-12-16] MEDS: INSULIN GLARGINE 100 UNITS/ML SUBCUT SCH ×2 (10:00→21:52)
[2021-12-16] MEDS ORDERED: ROCURONIUM BROMIDE 10MG/ML VIAL 5ML IV ONE ×2 (13:24→15:02)
[2021-12-16] MEDS ORDERED: ONDANSETRON HCL 4MG/2ML INJ ONE (15:02)
[2021-12-16] MEDS ORDERED: FENTANYL CITRATE/PF 50MCG/ML 2ML VIAL ONE (15:08)
[2021-12-16] MEDS ORDERED: PHENYLEPHRINE HCL 10 MG/ML 1ML (IV VIAL) IV ONE (16:11)
[2021-12-16] MEDS: ATORVASTATIN CALCIUM 40MG TABLET PO SCH (21:50)
[2021-12-17] VITALS (31 sets, daily range): BP systolic 102–153; BP diastolic 58–89
[2021-12-17] MEDS: BLOOD SUGAR DIAGNOSTIC STRIP TEST SCH ×4 (00:23→17:45)
[2021-12-17] MEDS: METOCLOPRAMIDE HCL 10MG/2ML VIAL IV SCH ×4 (00:28→17:45)
[2021-12-17] MEDS: DILTIAZEM HCL 30MG TABLET NG SCH ×4 (00:29→17:45)
[2021-12-17] MEDS: INSULIN LISPRO 100 UNITS/ML SUBCUT SCH ×7 (00:30→18:20)
[2021-12-17 06:55] LABS: HEMATOCRIT. 37.8 % (42.0-52.0); HEMOGLOBIN. 12.8 g/dL (14.0-18.0); MEAN CORPUSCULAR HEMOGLOBIN 29.8 pg (28.0-32.0); MEAN CORPUSCULAR VOLUME 87.8 fL (80.0-94.0); MEAN PLATELET VOLUME 10.3 fl (7.4-10.4); PLATELET 222 x1000/uL (130-400); RED BLOOD CELL COUNT 4.31 mill/uL (4.7-6.1); RED CELL DISTRIBUTION WIDTH 12.8 % (11.6-14.6)
[2021-12-17 07:57] LABS: PLATELET ESTIMATE NORMAL
[2021-12-17] MEDS: LOSARTAN POTASSIUM 50 MG TABLET PO SCH ×2 (09:29→21:12)
[2021-12-17] MEDS: FAMOTIDINE 20MG/2ML VIAL IV SCH ×2 (09:29→20:30)
[2021-12-17] MEDS: METOPROLOL TARTRATE 25MG TABLET NG SCH ×2 (09:29→21:13)
[2021-12-17] MEDS: DOCUSATE SODIUM SUGAR FREE 100MG/10ML UDC NG SCH ×2 (09:29→17:45)
[2021-12-17] MEDS: INSULIN GLARGINE 100 UNITS/ML SUBCUT SCH ×2 (09:31→21:16)
[2021-12-17] MEDS: CEFEPIME 2,000 MG in DEXT 5% WATER 100 ML IV SCH ×2 (09:32→20:31)
[2021-12-17] MEDS: SULFACETAMIDE SODIUM 10% OPHTH DROPS 15ML BOTHEYE SCH ×4 (09:32→21:14)
[2021-12-17] MEDS: ATORVASTATIN CALCIUM 40MG TABLET PO SCH ×2 (20:30→21:12)
[2021-12-17] MEDS ORDERED: FAMOTIDINE 20MG TABLET NG SCH (21:00)
[2021-12-18] VITALS (40 sets, daily range): BP systolic 90–156; BP diastolic 55–88
[2021-12-18] MEDS: BLOOD SUGAR DIAGNOSTIC STRIP TEST SCH ×4 (00:25→17:14)
[2021-12-18] MEDS: METOCLOPRAMIDE HCL 10MG/2ML VIAL IV SCH ×4 (00:36→17:50)
[2021-12-18] MEDS: DILTIAZEM HCL 30MG TABLET NG SCH ×4 (00:36→17:51)
[2021-12-18] MEDS: INSULIN LISPRO 100 UNITS/ML SUBCUT SCH ×7 (00:37→17:50)
[2021-12-18 06:08] LABS: CHLORIDE 115 mEq/L (98-107); HEMATOCRIT. 39.2 % (42.0-52.0); HEMOGLOBIN. 12.9 g/dL (14.0-18.0); MEAN CORPUSCULAR VOLUME 88.1 fL (80.0-94.0); MEAN PLATELET VOLUME 10.1 fl (7.4-10.4); PLATELET 251 x1000/uL (130-400); RED BLOOD CELL COUNT 4.45 mill/uL (4.7-6.1)
[2021-12-18 08:38] LABS: PLATELET ESTIMATE NORMAL
[2021-12-18] MEDS: LOSARTAN POTASSIUM 50 MG TABLET PO SCH ×2 (09:05→22:00)
[2021-12-18] MEDS: METOPROLOL TARTRATE 25MG TABLET NG SCH ×2 (09:06→22:01)
[2021-12-18] MEDS: FAMOTIDINE 20MG/2ML VIAL IV SCH ×2 (09:06→22:01)
[2021-12-18] MEDS: DOCUSATE SODIUM SUGAR FREE 100MG/10ML UDC NG SCH ×2 (09:13→17:50)
[2021-12-18] MEDS: INSULIN GLARGINE 100 UNITS/ML SUBCUT SCH ×2 (09:14→22:01)
[2021-12-18] MEDS: ACETAMINOPHEN 325MG TABLET PO PRN (09:25)
[2021-12-18] MEDS: CEFEPIME 2,000 MG in DEXT 5% WATER 100 ML IV SCH (09:30)
[2021-12-18] MEDS: SULFACETAMIDE SODIUM 10% OPHTH DROPS 15ML BOTHEYE SCH ×2 (09:30→12:27)
[2021-12-18] MEDS: MEROPENEM 1,000 MG in SODIUM CHLORIDE 0.9% 100 ML IV SCH (17:50)
[2021-12-19] VITALS (50 sets, daily range): BP systolic 89–155; BP diastolic 55–92
[2021-12-19] MEDS: BLOOD SUGAR DIAGNOSTIC STRIP TEST SCH ×5 (00:04→23:19)
[2021-12-19] MEDS: ACETAMINOPHEN 325MG TABLET PO PRN ×2 (00:10→19:48)
[2021-12-19] MEDS: METOCLOPRAMIDE HCL 10MG/2ML VIAL IV SCH ×5 (00:10→23:29)
[2021-12-19] MEDS: DILTIAZEM HCL 30MG TABLET NG SCH ×5 (00:11→23:30)
[2021-12-19] MEDS: INSULIN LISPRO 100 UNITS/ML SUBCUT SCH ×8 (00:12→23:29)
[2021-12-19] MEDS: MEROPENEM 1,000 MG in SODIUM CHLORIDE 0.9% 100 ML IV SCH ×3 (03:26→18:19)
[2021-12-19 06:25] LABS: BASOPHILS % 0.2 % (0.0-2.0); EOSINOPHILS % 0.4 % (0.0-5.0); HEMATOCRIT. 38.4 % (42.0-52.0); HEMOGLOBIN. 12.8 g/dL (14.0-18.0); LYMPHOCYTES % 7.4 % (20.0-50.0); MEAN CORPUSCULAR HEMOGLOBIN 29.5 pg (28.0-32.0); MEAN CORPUSCULAR VOLUME 88.3 fL (80.0-94.0); MEAN PLATELET VOLUME 10.1 fl (7.4-10.4); MONOCYTES % 4.4 % (2.0-8.0); NEUTROPHILS % 87.6 % (40.0-76.0); PLATELET 227 x1000/uL (130-400); RED BLOOD CELL COUNT 4.34 mill/uL (4.7-6.1); RED CELL DISTRIBUTION WIDTH 13.5 % (11.6-14.6)
[2021-12-19 06:32] LABS: CHLORIDE 120 mEq/L (98-107)
[2021-12-19] MEDS: DOCUSATE SODIUM SUGAR FREE 100MG/10ML UDC NG SCH ×2 (08:38→17:00)
[2021-12-19] MEDS: FAMOTIDINE 20MG/2ML VIAL IV SCH ×2 (08:38→21:09)
[2021-12-19] MEDS: METOPROLOL TARTRATE 25MG TABLET NG SCH ×2 (08:38→21:10)
[2021-12-19] MEDS: LOSARTAN POTASSIUM 50 MG TABLET PO SCH ×2 (08:38→21:09)
[2021-12-19] MEDS: IPRATROPIUM/ALBUTEROL 0.5-3(2.5)MG/3ML NEB HHN PRN ×3 (08:41→16:36)
[2021-12-19] MEDS: INSULIN GLARGINE 100 UNITS/ML SUBCUT SCH ×2 (10:28→21:09)
[2021-12-19] MEDS: ATORVASTATIN CALCIUM 40MG TABLET PO SCH (21:09)
[2021-12-20] VITALS (51 sets, daily range): BP systolic 97–181; BP diastolic 55–89
[2021-12-20] MEDS: MEROPENEM 1,000 MG in SODIUM CHLORIDE 0.9% 100 ML IV SCH ×3 (02:38→18:48)
[2021-12-20 05:15] LABS: CHLORIDE 119 mEq/L (98-107)
[2021-12-20 05:16] LABS: BASOPHILS % 0.3 % (0.0-2.0); EOSINOPHILS % 1.5 % (0.0-5.0); HEMATOCRIT. 37.9 % (42.0-52.0); HEMOGLOBIN. 12.5 g/dL (14.0-18.0); LYMPHOCYTES % 7.6 % (20.0-50.0); MEAN CORPUSCULAR HEMOGLOBIN 29.2 pg (28.0-32.0); MEAN CORPUSCULAR VOLUME 88.6 fL (80.0-94.0); MEAN PLATELET VOLUME 10.1 fl (7.4-10.4); MONOCYTES % 4.3 % (2.0-8.0); NEUTROPHILS % 86.3 % (40.0-76.0); PLATELET 204 x1000/uL (130-400); RED BLOOD CELL COUNT 4.28 mill/uL (4.7-6.1); RED CELL DISTRIBUTION WIDTH 13.3 % (11.6-14.6)
[2021-12-20] MEDS: METOCLOPRAMIDE HCL 10MG/2ML VIAL IV SCH ×3 (06:00→18:48)
[2021-12-20] MEDS: DILTIAZEM HCL 30MG TABLET NG SCH ×4 (06:00→23:58)
[2021-12-20] MEDS: INSULIN LISPRO 100 UNITS/ML SUBCUT SCH ×6 (06:19→18:47)
[2021-12-20] MEDS: BLOOD SUGAR DIAGNOSTIC STRIP TEST SCH ×3 (06:20→17:33)
[2021-12-20] MEDS: IPRATROPIUM/ALBUTEROL 0.5-3(2.5)MG/3ML NEB HHN PRN ×3 (08:26→16:26)
[2021-12-20] MEDS: DOCUSATE SODIUM SUGAR FREE 100MG/10ML UDC NG SCH ×2 (09:00→17:00)
[2021-12-20] MEDS: METOPROLOL TARTRATE 25MG TABLET NG SCH ×2 (09:17→20:37)
[2021-12-20] MEDS: FAMOTIDINE 20MG/2ML VIAL IV SCH ×2 (09:17→20:36)
[2021-12-20] MEDS: LOSARTAN POTASSIUM 50 MG TABLET PO SCH ×2 (09:17→20:37)
[2021-12-20] MEDS: INSULIN GLARGINE 100 UNITS/ML SUBCUT SCH ×2 (09:18→21:28)
[2021-12-20] MEDS: HYDRALAZINE 20MG/ML VIAL IV PRN (17:06)
[2021-12-20] MEDS: ATORVASTATIN CALCIUM 40MG TABLET PO SCH (20:37)
[2021-12-21] VITALS (44 sets, daily range): BP systolic 108–164; BP diastolic 54–116
[2021-12-21] MEDS: BLOOD SUGAR DIAGNOSTIC STRIP TEST SCH ×4 (00:04→18:51)
[2021-12-21] MEDS: METOCLOPRAMIDE HCL 10MG/2ML VIAL IV SCH ×4 (00:09→18:53)
[2021-12-21] MEDS: INSULIN LISPRO 100 UNITS/ML SUBCUT SCH ×8 (00:09→19:26)
[2021-12-21] MEDS: MEROPENEM 1,000 MG in SODIUM CHLORIDE 0.9% 100 ML IV SCH ×3 (01:25→18:53)
[2021-12-21 05:22] LABS: BASOPHILS % 0.3 % (0.0-2.0); EOSINOPHILS % 1.3 % (0.0-5.0); HEMATOCRIT. 37.3 % (42.0-52.0); HEMOGLOBIN. 12.2 g/dL (14.0-18.0); LYMPHOCYTES % 8.9 % (20.0-50.0); MEAN CORPUSCULAR HEMOGLOBIN 29.1 pg (28.0-32.0); MEAN CORPUSCULAR VOLUME 89.4 fL (80.0-94.0); MEAN PLATELET VOLUME 11.1 fl (7.4-10.4); MONOCYTES % 4.7 % (2.0-8.0); NEUTROPHILS % 84.8 % (40.0-76.0); PLATELET 174 x1000/uL (130-400); RED BLOOD CELL COUNT 4.17 mill/uL (4.7-6.1); RED CELL DISTRIBUTION WIDTH 12.8 % (11.6-14.6)
[2021-12-21 05:58] LABS: CHLORIDE 115 mEq/L (98-107)
[2021-12-21] MEDS: DILTIAZEM HCL 30MG TABLET NG SCH ×3 (06:00→18:52)
[2021-12-21] MEDS: DOCUSATE SODIUM SUGAR FREE 100MG/10ML UDC NG SCH ×2 (09:54→18:52)
[2021-12-21] MEDS: LOSARTAN POTASSIUM 50 MG TABLET PO SCH ×2 (09:54→21:37)
[2021-12-21] MEDS: METOPROLOL TARTRATE 25MG TABLET NG SCH ×2 (09:54→21:37)
[2021-12-21] MEDS: FAMOTIDINE 20MG/2ML VIAL IV SCH ×2 (09:54→21:35)
[2021-12-21] MEDS: INSULIN GLARGINE 100 UNITS/ML SUBCUT SCH ×2 (10:00→22:40)
[2021-12-21] MEDS: ATORVASTATIN CALCIUM 40MG TABLET PO SCH (21:37)
[2021-12-22] VITALS (23 sets, daily range): BP systolic 91–154; BP diastolic 53–94
[2021-12-22] MEDS: METOCLOPRAMIDE HCL 10MG/2ML VIAL IV SCH ×3 (00:46→12:34)
[2021-12-22] MEDS: BLOOD SUGAR DIAGNOSTIC STRIP TEST SCH ×3 (00:48→12:09)
[2021-12-22] MEDS: MEROPENEM 1,000 MG in SODIUM CHLORIDE 0.9% 100 ML IV SCH ×2 (02:07→09:15)
[2021-12-22 05:39] LABS: BASOPHILS % 0.3 % (0.0-2.0); HEMATOCRIT. 35.9 % (42.0-52.0); LYMPHOCYTES % 7.6 % (20.0-50.0); MEAN CORPUSCULAR HEMOGLOBIN 29.5 pg (28.0-32.0); MEAN CORPUSCULAR VOLUME 87.9 fL (80.0-94.0); MEAN PLATELET VOLUME 10.9 fl (7.4-10.4); MONOCYTES % 4.7 % (2.0-8.0); NEUTROPHILS % 86.4 % (40.0-76.0); PLATELET 194 x1000/uL (130-400); RED BLOOD CELL COUNT 4.08 mill/uL (4.7-6.1); RED CELL DISTRIBUTION WIDTH 12.8 % (11.6-14.6)
[2021-12-22 05:45] LABS: CHLORIDE 113 mEq/L (98-107)
[2021-12-22] MEDS: DILTIAZEM HCL 30MG TABLET NG SCH ×3 (06:20→12:34)
[2021-12-22] MEDS: INSULIN LISPRO 100 UNITS/ML SUBCUT SCH ×4 (06:21→12:00)
[2021-12-22] MEDS: DOCUSATE SODIUM SUGAR FREE 100MG/10ML UDC NG SCH (09:00)
[2021-12-22] MEDS: FAMOTIDINE 20MG/2ML VIAL IV SCH (09:14)
[2021-12-22] MEDS: METOPROLOL TARTRATE 25MG TABLET NG SCH (09:14)
[2021-12-22] MEDS: LOSARTAN POTASSIUM 50 MG TABLET PO SCH (09:14)
[2021-12-22] MEDS: INSULIN GLARGINE 100 UNITS/ML SUBCUT SCH (09:15)
[2021-12-22] MEDS ORDERED: INSULIN LISPRO 100 UNITS/ML SUBCUT SCH (14:00)
[2021-12-23] MEDS ORDERED: DEXT 5%/0.45% NACL 500ML 500 ML IV SCH (00:01)
== END 2021-12-22 17:55 | DRG 5 ==
LOC: ER 21:22 → MICUSO 12-03 02:47 → EDBEDREQ 12-03 02:53 → EDBEDREQSVC 12-03 02:53 → EDBEDREQDT 12-03 02:53 → EDBEDREQTM 12-03 02:53 → 8WST 12-03 09:35 → CVICU 12-09 09:30
PROVIDERS: ADMIT Hospitalist; ATTEND Hospitalist
PROC: 5A1955Z Respiratory Ventilation, Greater than 96 Consecutive Hours (ICD-10-PCS; principal; 2021-12-09)
PROC: 0BH17EZ Insertion of Endotracheal Airway into Trachea, Via Natural or Artificial Opening (ICD-10-PCS; 2021-12-09)
PROC: 0B110F4 Bypass Trachea to Cutaneous with Tracheostomy Device, Open Approach (ICD-10-PCS; 2021-12-16)
PROC: 5A12012 Performance of Cardiac Output, Single, Manual (ICD-10-PCS; 2021-12-22)
PROC: 5A2204Z Restoration of Cardiac Rhythm, Single (ICD-10-PCS; 2021-12-22)
DX: A41.9 Sepsis, unspecified organism (principal); N17.0 Acute kidney failure with tubular necrosis; I63.532 Cerebral infarction due to unspecified occlusion or stenosis of left posterior cerebral artery; I60.8 Other nontraumatic subarachnoid hemorrhage; G93.41 Metabolic encephalopathy; E43 Unspecified severe protein-calorie malnutrition; R13.11 Dysphagia, oral phase; I48.0 Paroxysmal atrial fibrillation; E87.0 Hyperosmolality and hypernatremia; J96.01 Acute respiratory failure with hypoxia; I21.A1 Myocardial infarction type 2; E88.09 Other disorders of plasma-protein metabolism, not elsewhere classified; E78.5 Hyperlipidemia, unspecified; I10 Essential (primary) hypertension; G81.94 Hemiplegia, unspecified affecting left nondominant side; Z78.1 Physical restraint status; R74.01 Elevation of levels of liver transaminase levels; I07.1 Rheumatic tricuspid insufficiency; G90.8 Other disorders of autonomic nervous system; G89.29 Other chronic pain; Z20.822 Contact with and (suspected) exposure to COVID-19; E11.65 Type 2 diabetes mellitus with hyperglycemia; Y92.238 Other place in hospital as the place of occurrence of the external cause; E87.6 Hypokalemia; I46.9 Cardiac arrest, cause unspecified; I49.3 Ventricular premature depolarization; R13.12 Dysphagia, oropharyngeal phase; S01.81XA Laceration without foreign body of other part of head, initial encounter; S01.111A Laceration without foreign body of right eyelid and periocular area, initial encounter; W06.XXXA Fall from bed, initial encounter; Y93.89 Activity, other specified; Y99.8 Other external cause status; Z79.4 Long term (current) use of insulin; Z79.82 Long term (current) use of aspirin; Z79.84 Long term (current) use of oral hypoglycemic drugs; Z79.899 Other long term (current) drug therapy; Z99.11 Dependence on respirator [ventilator] status; Z68.26 Body mass index [BMI] 26.0-26.9, adult
CPT/HCPCS: 31500; 36415; 36600; 70496; 70498; 70551; 71045; 71275; 74018; 80048; 80053; 80061; 80076; 80305; 80320; 81003; 82375; 82550; 82805; 82962; 83036; 83735; 84145; 84439; 84443; 84478; 84481; 84484; 85025; 85027; 87070; 87426; 92610; 93005; 93306; 94002; 94003; 94640; 97162; 97166; 99291; A6261; C1893; J0360; J0690; J0692; J1200; J1630; J1815; J2060; J2185; J2370; J2405; J2704; J2765; J3010; J3480; J3490; J7030; J7042; J7050; J7060; J7070; Q9967; A4315; G0480